=== PATIENT | male | born 1985 | race Caucasian/White ===

== ENCOUNTER 2017-08-08 10:49 | Emergency (ER) | payer OTHER ==
[~2017-08-08] VITALS: Ht 180.3 cm; Wt 97.4 kg
[2017-08-08] MEDS ORDERED: TYLENOL WITH C1 EACH PO (13:56)
[2017-08-08 14:07] VITALS: BP 135/77
== END 2017-08-08 14:10 | disposition home or self-care (01) ==
LOC: TRA 10:49 → EME 10:49 → TRA 14:10
DX: S00.83XA Contusion of other part of head, initial encounter (principal); S30.0XXA Contusion of lower back and pelvis, initial encounter; S80.02XA Contusion of left knee, initial encounter; S80.01XA Contusion of right knee, initial encounter; V44.5XXA Car driver injured in collision with heavy transport vehicle or bus in traffic accident, initial encounter; Y92.410 Unspecified street and highway as the place of occurrence of the external cause; F17.200 Nicotine dependence, unspecified, uncomplicated
CPT/HCPCS: 70450; 71020; 72100; 72125; 73560; 81003; 99281; 99284